=== PATIENT | male | born 1970 | race Caucasian/White ===

== ENCOUNTER 2017-10-25 09:29 | Emergency (ER) | payer OTHER ==
[~2017-10-25] VITALS: Ht 188 cm; Wt 136.1 kg
[~2017-10-25 09:29] MED LIST: ALBUTEROL0.09 MG/A1 INH; ASPIRIN81 M4 PO; ATENOLOL100 MG PO; AUGMENTIN 875-1 EACH PO; DEXILANT60 MG PO; HYDRODIURIL 112.5 M1 PO; HYDRODIURIL 2525 MG PO; LAMICTAL200 MG PO; LEVEMIR FLEX100 U/M1 SC; LISINOPRIL20 MG PO; LISINOPRIL40 MG PO; LITHIUM CARBON600 MG PO; MUCINEX D 600 M1 TER PO; NEURONTIN300 MG PO; NOVOLOG100 U/ML SC; PERCOCET 5-3251 EACH PO; PRAVASTATIN SOD80 MG PO; PREDNISONE 20MG20 MG PO; PROAIR HFA0.09 MG/Ac INH; SYNTHROID0.025 MG PO; TRADJENTA5 MG PO; TRAZODONE100 MG PO; TRILIPIX 135 M135 MG PO; VICODIN5-300 PO; VICTOZA6 MG/ML SC
--- NOTE | 2017-10-25 11:35 | ED SKIN/ALLERGY COMPLAINT ---
History of Present Illness General Chief Complaint: Skin Rash/ Abcess Stated Complaint: ABCESS Source: patient Exam Limitations: no limitations Vital Signs & Intake/Output Vital Signs & Intake/Output Vital Signs Date Time Temp Pulse Resp B/P B/P Pulse O2 O2 Flow FiO2 Mean Ox Delivery Rate 10/25 1309 97.3 114 18 140/81 97 10/25 1121 98 Room Air 10/25 0953 98.2 94 20 167/87 98 Room Air Allergies Coded Allergies: NO KNOWN ALLERGIES (09/22/15) Reconcile Medications Amoxicillin 875 MG TABLET 1 TAB PO BID abscess Amoxicillin/Potassium Clav (Augmentin 875-125 Tablet) 875 MG-125 MG TABLET 1 TAB PO BID SKIN ABRASION Aspirin (Aspirin*) 81 MG TAB.CHEW 1 TAB PO DAILY HEART HEALTH Atenolol 100 MG TAB 1 TAB PO QAM BP (Reported) Dexlansoprazole (Dexilant) 60 MG ECC 1 CAP PO QAM GI (Reported) Fenofibric Acid (Trilipix 135 MG CAP) 135 MG CAP 1 CAP PO QPM CHOLESTEROL ( Reported) Gabapentin (Neurontin) 300 MG CAP 1 CAP PO TID NERVE PAIN (Reported) Hydrochlorothiazide (Hydrodiuril 25 MG Tab) 25 MG TAB 1 TAB PO DAILY WATER PILL (Reported) Insulin Aspart, Recombinant (Novolog) 100 U/ML JUAN RAMON 30 UNITS SC TIDAC PRN GLUCOSE CONTROL (Reported) BLOOD SUGAR # OF UNITS < 80 NONE 80-150 NONE 151-200 4 UNITS 201-250 6 UNITS 251-300 8 UNITS 301-350 10 UNITS 351-400 12 UNITS >400 14 UNITS and call Insulin Detemir (Levemir Flextouch) 100 U/ML JUAN RAMON 70 UNITS SC QAM DIABETES ( Reported) Insulin Detemir (Levemir Flextouch) 100 U/ML JUAN RAMON 100 UNITS SC QHS DIABETES ( Reported) Lamotrigine (Lamictal) 200 MG TAB 1 TAB PO QAM MENTAL HEALTH (Reported) Levothyroxine (Synthroid) 0.025 MG TAB 0.025 MG PO DAILY AC THYROID (Reported ) Linagliptin (Tradjenta) 5 MG TAB 1 TAB PO QPM DIABETES (Reported) Liraglutide (Victoza 3-Evaristo) 6 MG/ML JUAN RAMON 1.8 mg SC QAM DIABETES (Reported) Lisinopril 40 MG TAB 1 TAB PO DAILY BP (Reported) Oxycodone HCl/Acetaminophen (Percocet 5-325 MG Tablet) 5 MG-325 MG TABLET 1 TAB PO BID PRN PAIN Pravastatin Sodium 80 MG TAB 1 TAB PO QPM CHOLESTEROL (Reported) Sulfamethoxazole/Trimethoprim (Bactrim Ds Tablet) 800 MG-160 MG TABLET 1 TAB PO BID abscess TRAZODONE HCL (Trazodone HCl) 100 MG TAB 1 TAB PO QPM PRN SLEEP (Reported) Triage Note: PT C/O A COUPLE ABSCESSES UNDER HIS RIGHT ARMPIT. NOT VISUALIZED IN TRIAGE Triage Nurses Notes Reviewed? yes Onset: Gradual Duration: week(s): Timing: recent history Severity: moderate Location: right axilla HPI: 47yo male presents to ED complaining of abscess to right axilla x several weeks. Pateint reports multiple bumps in right axilla. He states he took an antibiotic he had available at home last month and had improvement however after he completed antibiotics his symptoms worsened again. Patient states that yesterday he felt fevers and generalized malaise. Abscess has been draining on its own beginning last night. Patient has been applying warm compresses for the past few weeks. He denies abdominal pain, vomiting. (Ally Ford) Past History Travel History Traveled to [place] past 21 day No Medical History Any Pertinent Medical History? see below for history Neurological: NONE EENT: NONE Cardiovascular: hypertension, hyperlipidemia, STENT Respiratory: NONE Gastrointestinal: REFLUX Hepatic: NONE Renal: NONE Musculoskeletal: NONE Psychiatric: depression Endocrine: diabetes, hypothyroidism History of MRSA: No History of VRE: No History of CDIFF: No Surgical History Surgical History: CARDIAC STENT Psychosocial History What is your primary language Uzbek Tobacco Use: Quit >30 days ago ETOH Use: occasional use Illicit Drug Use: denies illicit drug use Family History Family History, If Any: FATHER *No pertinent family history Relation not specified for: Heart attack Hx Contributory? No (Ally Ford) Review of Systems Review of Systems Constitutional: Reports: see HPI. EENTM: Reports: no symptoms. Respiratory: Reports: no symptoms. Cardiovascular: Reports: no symptoms. GI: Reports: no symptoms. Genitourinary: Reports: no symptoms. Musculoskeletal: Reports: no symptoms. Skin: Reports: see HPI. Neurological/Psychological: Reports: no symptoms. Hematologic/Endocrine: Reports: no symptoms. Immunologic/Allergic: Reports: no symptoms. All Other Systems: Reviewed and Negative (Ally Ford) Physical Exam Physical Exam General Appearance: well developed/nourished, no apparent distress, alert, awake Head: atraumatic, normal appearance Eyes: Bilateral: normal appearance. Ears, Nose, Throat: hearing grossly normal Neck: normal inspection, supple, full range of motion Respiratory: no respiratory distress Back: normal inspection, normal range of motion Extremities: 3x2cm area of erythema, induration, tenderness, with central area of purulent drainage to right axilla Neurologic/Psych: awake, alert, oriented x 3 Skin: abscess Skin Problem Character: abcess (Ally Ford) Progress Differential Diagnosis: abscess/cellulitis, allergic reaction, contact dermatitis, drug reaction, urticaria Plan of Care: Orders Procedure Date/time Status EXTREMETIES CULTURE 10/25 1257 Active Microbiology 10/25 1300 EXTREMITIE: Culture & Sensitivity - RECD 10/25 1300 EXTREMITIE: Gram Stain - RECD Abscess incision and drainage performed, patient tolerated procedure well. Culture sent to lab. Patient started on antibiotics and will follow-up in 2 days for wound check. Patient is in no acute distress, nontoxic-appearing at this time, vital signs are stable. Patient agrees with the plan of care. (Ally Ford) Departure Departure Disposition: HOME OR SELF CARE Condition: Stable Clinical Impression Primary Impression: Abscess Referrals: Juliet Mendiola DO (PCP/Family) Additional Instructions: Apply warm compresses twice daily. Return in 2 days for wound check. Again antibiotics today, take 2 doses of antibiotics today. Please note that there might be incidental findings in your evaluation that are unrelated to the current emergency department visit. Please notify your primary care doctor about this emergency department visit in order to obtain and review all of the testing performed so that these incidental findings can be monitored as needed. If you had an x-ray performed, please understand that some fractures may not be seen on the initial set of x-rays. If your symptoms persist you might need a repeat set of x-rays to check for such a fracture. If you had a laceration evaluated, please understand that foreign bodies such as glass or wood may not be visible to the naked eye or on plain x-rays. If the wound becomes red, swollen, increasingly more painful or if there is any drainage from the wound, please have it reevaluated by a physician for the possibility of a retained foreign body. If you're unable to follow up as outlined in the discharge instructions please return to the emergency department. Thank you for choosing the [facility] Emergency Department for your care. It was a pleasure to serve you today. Departure Forms: Customer Survey General Discharge Information Prescriptions: Current Visit Scripts Sulfamethoxazole/Trimethoprim (Bactrim Ds Tablet) 1 TAB PO BID #20 TAB Amoxicillin 1 TAB PO BID #20 TAB (Sabina BOX,Ally Alfredo) PA/MOBILE ENGINEER Co-Sign Statement Statement: ED Attending supervision documentation- [] I saw and evaluated the patient. I have also reviewed all the pertinent lab results and diagnostic results. I agree with the findings and the plan of care as documented in the PA's/MOBILE ENGINEER's documentation. [x] I have reviewed the ED Record and agree with the PA's/MOBILE ENGINEER's documentation. [] Additions or exceptions (if any) to the PAs/MOBILE ENGINEER's note and plan are summarized below: [] (Leeroy Pennington DO) Procedures Incision and Drainage Site: right axilla Blade Size: 11 I & D Procedure: Yes: betadine prep, sterile drapes applied, sterile dressing applied. No: wick placed. Progress: One percent lidocaine used for anesthesia. A small incision made with 11 blade scalpel. Purulent drainage expressed from abscess. Culture sent to lab. Area explored with Allegra clamps, no deep loculations detected. Given significant induration no packing was placed. (Ally Ford)
[2017-10-25] MEDS ORDERED: BACTRIM DS TAB1 EACH PO (12:58)
[2017-10-25] MEDS ORDERED: AMOXICILLIN875 M1 PO (12:58)
[2017-10-25 13:09] VITALS: BP 140/81
== END 2017-10-25 13:23 ==
LOC: ERH 09:29
DX: L02.411 Cutaneous abscess of right axilla (principal)
CPT/HCPCS: 87070

== ENCOUNTER 2017-12-03 11:55 | Emergency (ER) | payer SELFPAY ==
[~2017-12-03] VITALS: Ht 188 cm; Wt 131.5 kg
[~2017-12-03 11:55] MED LIST changes: +AMOXICILLIN875 M1 PO; +BACTRIM DS TAB1 EACH PO
--- NOTE | 2017-12-03 12:36 | ED GENERAL ADULT ---
History of Present Illness General Chief Complaint: General Adult Stated Complaint: WEAKNESS, HEADACHE, NOT FEELING WELL Source: patient Exam Limitations: no limitations Vital Signs & Intake/Output Vital Signs & Intake/Output Vital Signs Date Time Temp Pulse Resp B/P B/P Pulse O2 O2 Flow FiO2 Mean Ox Delivery Rate 12/03 1628 86 18 149/95 99 Room Air 12/03 1508 90 18 141/83 97 Room Air 12/03 1432 91 18 123/72 100 Room Air 12/03 1253 90 18 137/82 98 Room Air 12/03 1241 Room Air 12/03 1210 96.6 89 18 136/88 97 Room Air Allergies Coded Allergies: NO KNOWN ALLERGIES (09/22/15) Reconcile Medications Amlodipine Besylate 10 MG TABLET 1 TAB PO DAILY BP (Reported) Ascorbic Acid (Vitamin C) (Unknown Strength) TABLET (Unknown Dose) PO DAILY SUPPLEMENT (Reported) Gabapentin 600 MG TABLET 1 TAB PO TID NERVE PAIN (Reported) Lactobacillus Acidophilus (Probiotic) (Unknown Strength) CAPSULE (Unknown Dose ) PO DAILY PROBIOTIC (Reported) Lisinopril 40 MG TABLET 1 TAB PO DAILY BP (Reported) Magnesium Oxide (Magnesium) (Unknown Strength) CAPSULE (Unknown Dose) PO DAILY SUPPLEMENT (Reported) Metformin HCl 500 MG TABLET 1 TAB PO BID diabetes Omeprazole 20 MG CAPSULE.DR 1 CAP PO DAILY GI (Reported) Triage Note: 47 YEAR OLD MALE TO ER WITH COMPLAINTS OF NOT FEELING WELL FOR THE PAST COUPLE OF MONTHS, COMPLAINS OF FEELING WEAK ALL OVER , HAS HAD A 50 LB WEIGHT LOSS IN THE PAST MONTH. PT IS IDDM AND HAS BEEN WITH OUT INSULIN SINCE JUNE, ( STATES THAT HE HAS NO INSURANCE) FS AT TRIAGE 480, PT COMPLAINS OF NAUSEA/HEADACHE. INTERMITTANT SORES IN NARES AND THATHE HAS 2 ABCESSES IN HIS R AXILARY AREA. PT HAS HISTORY OF MRSA Triage Nurses Notes Reviewed? yes Onset: Gradual Duration: week(s): Timing: recent history Injury Environment: home Severity: moderate HPI: 47yo male with hx of DM presents to ED complaining of weakness, malaise, headache, nausea and unintentional weight loss over the past month or so. Patient states he has diabetes however has been off his insulin for over 6 months. He states he could not afford this medication anymore. He does not check his blood sugar. Patient reports history of abscesses, had an abscess drained here in the emergency department within the past few months which has improved. Patient denies sore throat, abdominal pain, vomiting, fevers. (Ally Ford) Past History Travel History Traveled to [place] past 21 day No Medical History Any Pertinent Medical History? see below for history Neurological: NONE EENT: NONE Cardiovascular: hypertension, hyperlipidemia, STENT Respiratory: NONE Gastrointestinal: REFLUX Hepatic: NONE Renal: NONE Musculoskeletal: NONE Psychiatric: depression Endocrine: diabetes, hypothyroidism History of MRSA: No History of VRE: No History of CDIFF: No Surgical History Surgical History: CARDIAC STENT Psychosocial History What is your primary language Danish Tobacco Use: Never used ETOH Use: denies use Illicit Drug Use: denies illicit drug use Family History Family History, If Any: FATHER *No pertinent family history Relation not specified for: Heart attack Hx Contributory? No (Ally Ford) Review of Systems Review of Systems Constitutional: Reports: see HPI. EENTM: Reports: no symptoms. Respiratory: Reports: no symptoms. Cardiovascular: Reports: no symptoms. GI: Reports: see HPI. Genitourinary: Reports: no symptoms. Musculoskeletal: Reports: no symptoms. Skin: Reports: no symptoms. Neurological/Psychological: Reports: see HPI. Hematologic/Endocrine: Reports: see HPI. Immunologic/Allergic: Reports: no symptoms. All Other Systems: Reviewed and Negative (Ally Ford) Physical Exam Physical Exam General Appearance: well developed/nourished, no apparent distress, alert, awake Head: atraumatic, normal appearance Eyes: Bilateral: normal appearance, PERRL, EOMI. Ears, Nose, Throat: normal pharynx, normal ENT inspection, hearing grossly normal Neck: normal inspection, supple, full range of motion, no LAD Respiratory: normal breath sounds, no respiratory distress, lungs clear Cardiovascular: regular rate/rhythm Gastrointestinal: normal bowel sounds, soft, non-tender, no organomegaly Back: normal inspection, normal range of motion Extremities: normal inspection, normal range of motion Neurologic/Psych: awake, alert, oriented x 3, typo machine operator II-XII nml as tested Skin: intact, normal color, warm/dry Core Measures ACS in differential dx? No CVA/TIA Diagnosis: No Sepsis Present: No Sepsis Focused Exam Completed? No (Ally Ford) Progress Differential Diagnoses I considered the following diagnoses in my evaluation of the patient: [ Hyperglycemia, electrolyte abnormality, anemia, pneumonia, tuberculosis, Lyme disease, malignancy] Plan of Care: Orders Procedure Date/time Status LACTIC ACID 12/03 1517 Active Add-on Test (ER Only) 12/03 123 Active EKG 12/03 123 Active URINALYSIS 12/03 1216 Complete TROPONIN LEVEL 12/03 1216 Complete LYME TITRE 12/03 1216 Active LACTIC ACID 12/03 1216 Complete COMPREHENSIVE METABOLIC PANEL 12/03 1216 Complete CBC WITHOUT DIFFERENTIAL 12/03 1216 Complete Laboratory Tests 12/03/17 1331: Urine Color YEL, Urine Clarity CLEAR, Urine pH 6.0, Ur Specific [place] 1.020, Urine Protein 100 H, Urine Ketones 15 H, Urine Nitrite NEG, Urine Bilirubin NEG, Urine Urobilinogen 0.2, Ur Leukocyte Esterase NEG, Ur Microscopic SEDIMENT EXAMINED, Urine RBC RARE, Urine WBC RARE, Urine Hemoglobin TRACE-INTACT H, Urine Glucose >=1000 H 12/03/17 1330: Anion Gap 14, Estimated GFR > 60, BUN/Creatinine Ratio 26.3 H, Glucose 412 H, Lactic Acid 0.8, Calcium 9.1, Total Bilirubin 0.8, AST 29, ALT 34, Alkaline Phosphatase 121, Troponin I < 0.01, Total Protein 6.6, Albumin 3.5, Globulin 3.1 , Albumin/Globulin Ratio 1.1, Lyme Disease Antibody Pending 12/03/17 1118: CBC w Diff NO MAN DIFF REQ, RBC 4.89, MCV 82.7, MCH 28.1, MCHC 34.0, RDW 13.3, MPV 9.1, Gran % 70.3, Lymphocytes % 22.1, Monocytes % 5.0, Eosinophils % 2.3, Basophils % 0.3, Absolute Granulocytes 4.9, Absolute Lymphocytes 1.6, Absolute Monocytes 0.3, Absolute Eosinophils 0.2, Absolute Basophils 0 X-rays negative for acute infectious process. Patient's labs show hyperglycemia however are otherwise stable. Patient medicated with IV fluids and 10 units regular insulin IV for his hyperglycemia. Following 2 L IV fluids and insulin patient's blood sugar has been reasonably reduced. Patient has been off his diabetic medication for several months. Patient was formally on metformin and insulin. Will initiate metformin and have patient follow-up with his primary care doctor for further blood sugar control. Patient has an appointment with his primary care doctor within the next 2 weeks. Patient instructed to check his blood sugar regularly with glucometer and was given strict return precautions. No evidence of infection on physical exam, patient afebrile. He understands the importance of follow-up regarding his symptoms. Discussed with Dr. Lopez who agrees with this plan. Diagnostic Imaging: Viewed by Me: Radiology Read. Discussed w/RAD: Radiology Read. CXR Impression: PATIENT: REBA THEODORE PRESENT AGE: 47 PATIENT ACCOUNT NO: [id number] : 69 LOCATION: [facility] ORDERING PHYSICIAN: Ally BOX SERVICE DATE: 12/03/17 EXAM TYPE: RAD - XRY-CHEST XRAY, TWO VIEWS EXAMINATION: XR CHEST CLINICAL INFORMATION: Fever with weight loss and dyspnea. Rule out pneumonia or TB COMPARISON: March 18, 2015 TECHNIQUE: 2 views of the chest were obtained. FINDINGS: No significant abnormality is noted involving the heart, lungs, mediastinum, bony thorax or soft tissues. IMPRESSION: No acute disease. No evidence of active tuberculosis. DICTATED BY: Jamari Maldonado MD DATE/TIME DICTATED:12/03/171415 METAL CEILING BUILDER:SIERRA DATE/TIME TRANSCRIBED:12/03/171415 CONFIDENTIAL, DO NOT COPY WITHOUT APPROPRIATE AUTHORIZATION. <Electronically signed in Other Vendor System> SIGNED BY: Jamari Maldonado MD 12/03/171421 Initial ED EKG: sinus rhythm @86bpm, nonspecific ST changes Prior EKG: unchanged (09/22/15) (Sabina BOX,Ally Alfredo) Departure Departure Disposition: HOME OR SELF CARE Condition: Stable Clinical Impression Primary Impression: Hyperglycemia Secondary Impressions: Malaise, Weight loss Referrals: Juliet Mendiola DO (PCP/Family) Additional Instructions: Begin metformin as prescribed for hyperglycemia. Use the glucometer to check your glucose levels frequently throughout the day. Follow-up with your primary care doctor for further evaluation of your blood sugar. You may require clinic and in the future. With any worsening symptoms or concerns please return to the emergency department. Please note that there might be incidental findings in your evaluation that are unrelated to the current emergency department visit. Please notify your primary care doctor about this emergency department visit in order to obtain and review all of the testing performed so that these incidental findings can be monitored as needed. If you had an x-ray performed, please understand that some fractures may not be seen on the initial set of x-rays. If your symptoms persist you might need a repeat set of x-rays to check for such a fracture. If you had a laceration evaluated, please understand that foreign bodies such as glass or wood may not be visible to the naked eye or on plain x-rays. If the wound becomes red, swollen, increasingly more painful or if there is any drainage from the wound, please have it reevaluated by a physician for the possibility of a retained foreign body. If you're unable to follow up as outlined in the discharge instructions please return to the emergency department. Thank you for choosing the [facility] Emergency Department for your care. It was a pleasure to serve you today. Departure Forms: Customer Survey General Discharge Information Prescriptions: Current Visit Scripts Metformin HCl 1 TAB PO BID #30 TAB (Ally Ford) PA/COMPUTATIONAL MATHEMATICIAN Co-Sign Statement Statement: ED Attending supervision documentation- I saw and evaluated the patient. I have also reviewed all the pertinent lab results and diagnostic results. I agree with the findings and the plan of care as documented in the PA's/COMPUTATIONAL MATHEMATICIAN's documentation. x I have reviewed the ED Record and agree with the PA's/COMPUTATIONAL MATHEMATICIAN's documentation. [] Additions or exceptions (if any) to the PAs/COMPUTATIONAL MATHEMATICIAN's note and plan are summarized below: [] (Dior BENNETT,Malik) Critical Care Note Critical Care Note Critical Care Time: non-applicable (Ally Ford)
[2017-12-03 12:46] LABS: ABSOLUTE BASOPHIL COUNT 0 /CUMM (0.0-0.2); ABSOLUTE EOSINOPHIL COUNT 0.2 /CUMM (0.0-0.7); ABSOLUTE GRANULOCYTE CT 4.9 /CUMM (1.4-6.5); ABSOLUTE LYMPH COUNT 1.6 /CUMM (1.2-3.4); ABSOLUTE MONOCYTE COUNT 0.3 /CUMM (0.10-0.60); BASOPHIL % 0.3 % (0.0-2.0); EOSINOPHIL % 2.3 % (0-5); GRANULOCYTE % 70.3 % (42.2-75.2); HEMATOCRIT 40.4 % (42-52); MEAN CORPUSCULAR HGB 28.1 PG (27.0-31.0); MEAN CORPUSCULAR VOLUME 82.7 FL (80.0-94.0); MEAN PLATELET VOLUME 9.1 FL (7.4-10.4); PLATELET COUNT 214 /CUMM (130-400); RBC DISTRIBUTION WIDTH 13.3 % (11.5-14.5); RED BLOOD CELL CT 4.89 /CUMM (4.70-6.10)
--- NOTE | 2017-12-03 14:22 | RADIOLOGY REPORT ---
EXAMINATION: XR CHEST CLINICAL INFORMATION: Fever with weight loss and dyspnea. Rule out pneumonia or TB COMPARISON: March 18, 2015 TECHNIQUE: 2 views of the chest were obtained. FINDINGS: No significant abnormality is noted involving the heart, lungs, mediastinum, bony thorax or soft tissues. IMPRESSION: No acute disease. No evidence of active tuberculosis.
[2017-12-03] MEDS ORDERED: AMLODIPINE BESY10 M1 PO (14:35)
[2017-12-03] MEDS ORDERED: LISINOPRIL40 M1 PO (14:35)
[2017-12-03] MEDS ORDERED: GABAPENTIN600 M1 PO (14:36)
[2017-12-03] MEDS ORDERED: VITAMIN C500 M8 PO (14:36)
[2017-12-03] MEDS ORDERED: OMEPRAZOLE20 M2 PO (14:37)
[2017-12-03] MEDS ORDERED: PROBIOTIC1 EACH PO (14:37)
[2017-12-03] MEDS ORDERED: MAGNESIUM400 M1 PO (14:37)
[2017-12-03 16:28] VITALS: BP 149/95
[2017-12-03] MEDS ORDERED: METFORMIN HCL500 M3 PO (16:40)
== END 2017-12-03 16:46 ==
LOC: ERH 11:55
PROVIDERS: Emergency Medicine
DX: E11.65 Type 2 diabetes mellitus with hyperglycemia (principal); R53.81 Other malaise; R63.4 Abnormal weight loss; R51 Headache; R53.1 Weakness; R11.0 Nausea
CPT/HCPCS: 86618; 71046; 81001; 93005; 93010; 96374; J1815